=== PATIENT | male | born 1955 | race Caucasian/White ===

== ENCOUNTER → 2017-12-18 | Outpatient (CLI) | payer OTHER ==
[~2017-12-18] MED LIST: GABAPENTIN400 MG PO; JANUVIA100 MG PO; LIPITOR PO; LISINOPRIL5 MG PO; METFORMIN HCL1000 MG PO; MULTIPLE VITAM1 EACH PO; PERCOCET 10/1 TABLET PO; ZANAFLEX4 M1 PO
== END | disposition home or self-care (01) ==
LOC: RAD 13:00
PROC: 3E0R3KZ Introduction of Other Diagnostic Substance into Spinal Canal, Percutaneous Approach (ICD-10-PCS; principal; 2017-12-18)
DX: M48.02 Spinal stenosis, cervical region (principal); M25.78 Osteophyte, vertebrae; M46.92 Unspecified inflammatory spondylopathy, cervical region; Z98.1 Arthrodesis status
CPT/HCPCS: 62302; 72126